=== PATIENT | male | born 1955 | race Two or more races ===

== ENCOUNTER 2022-05-23 07:38 | Outpatient (CLI) | payer OTHER ==
[~2022-05-23 07:38] MED LIST: GLUCOPHAGE XR500 MG PO; LIPITOR20 MG PO
== END 2022-05-23 07:43 | disposition home or self-care (01) ==
LOC: NUCLEAR 07:38
PROVIDERS: ATTEND Internal Medicine
DX: I51.7 Cardiomegaly (principal); I70.0 Atherosclerosis of aorta; I15.8 Other secondary hypertension